=== PATIENT | female | born 1955 | race Caucasian/White ===

== ENCOUNTER 2020-04-15 11:10 | Emergency (ER) | payer OTHER ==
[~2020-04-15] VITALS: Ht 167.6 cm; Wt 63.0 kg
[2020-04-15] MEDS ORDERED: COZAAR100 MG (11:48)
[2020-04-15] MEDS ORDERED: TOPROL XL50 M1 (11:48)
== END 2020-04-15 16:13 | disposition home or self-care (01) ==
LOC: ER 11:10
DX: K59.09 Other constipation (principal); R10.31 Right lower quadrant pain; R10.2 Pelvic and perineal pain